=== PATIENT | male | born 2005 | race Caucasian/White ===

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

== ENCOUNTER 2024-08-06 10:42 | Emergency (ER) | payer OTHER ==
[~2024-08-06] VITALS: Ht 175.3 cm; Wt 117.9 kg
[2024-08-06 11:15] VITALS: BP 133/82
== END 2024-08-06 12:01 | disposition home or self-care (01) ==
LOC: ER 10:42
DX: S43.401A Unspecified sprain of right shoulder joint, initial encounter (principal); W18.30XA Fall on same level, unspecified, initial encounter; Z88.1 Allergy status to other antibiotic agents
CPT/HCPCS: 73030; 99283-25